=== PATIENT | female | born 1990 ===

== ENCOUNTER 2020-12-29 14:09 | Outpatient (CLI) | payer BC ==
--- NOTE | 2020-12-29 15:37 | XRay Report ---
LEFT KNEE HISTORY: Fall 5 weeks ago. COMPARISON: None. TECHNIQUE: 2 views of the left knee obtained. FINDINGS: Bones: No fracture or dislocation. Joint spaces: Maintained. Soft tissues: No significant abnormality. Additional findings: None. IMPRESSION: Left knee without evidence of acute osseous injury. Signer Name: Estuardo Siddiqui MD Signed: 12/29/2020 3:32 PM Workstation Name: [id number]
== END 2020-12-29 14:10 | disposition home or self-care (01) ==
LOC: SPVIMAG 14:09
PROVIDERS: ATTEND Urology
DX: M25.562 Pain in left knee (principal)